=== PATIENT | male | born 1965 | race Two or more races ===

== ENCOUNTER 2020-01-24 08:07 | Inpatient (IN) | payer MEDICAID ==
[~2020-01-24] VITALS: Ht 157.5 cm; Wt 78.9 kg
[~2020-01-24 08:07] MED LIST: ASPI-404 PO; CETI1TAB36 PO; CLOP75TA28 PO; HYDR25TA4 PO; LISI-646 PO; OMEP-335 PO; RANO500T2 PO
[2020-01-24] MEDS ORDERED: ANGIOMAX 250 MG VIAL IV ONE (08:38)
[2020-01-24] MEDS ORDERED: VERAPAMIL 2.5MG/ML INJ 2ML VIAL IV ONE (08:38)
[2020-01-24] MEDS ORDERED: SODIUM CHL 0.9% 0 ML ONE (08:39)
[2020-01-24] MEDS ORDERED: LIDOCAINE 2%HCL (LOCAL ANESTH.) INJ 20ML MDV ONE (08:39)
[2020-01-24] MEDS ORDERED: IODIXANOL 320MG/ML 100ML BTL IV ONE (08:48)
[2020-01-24] MEDS ORDERED: fentaNYL CITRATE 100 MCG/2 ML VL ONE (08:59)
[2020-01-24] MEDS ORDERED: MIDAZOLAM HCL 1MG/1ML-2 ML VIAL ONE (08:59)
[2020-01-24] MEDS ORDERED: HEPARIN SODIUM (PORCINE) 5000 UNITS/ML 1ML VIAL ONE (09:27)
[2020-01-24] MEDS ORDERED: ACETAMINOPHEN 500 MG TAB PO PRN (09:45)
[2020-01-24] MEDS ORDERED: NITROGLYCERIN 0.4 MG SL TAB SL PRN ×2 (09:45)
[2020-01-24] MEDS ORDERED: MORPHINE SULF INJ 2 MG/ML SYRINGE 1ML IV PRN ×2 (09:45)
[2020-01-24] MEDS ORDERED: HYDROcodone-ACET 5/325MG TAB PO PRN (09:45)
[2020-01-24] MEDS ORDERED: ONDANSETRON HCL 4 MG/2 ML VIAL IV PRN (09:45)
[2020-01-24] MEDS ORDERED: HCTZ 25 MG TAB PO SCH (10:00)
[2020-01-24] MEDS ORDERED: [UNRECOGNIZED DRUG - REMARK] PO SCH (10:00)
[2020-01-24] MEDS: ASPirin-EC 81 mg tab PO SCH (10:00)
[2020-01-24] MEDS ORDERED: PATIENTS OWN MEDICATION (Omeprazole 20 MG) PO SCH (10:00)
[2020-01-24] MEDS: LISINOPRIL 20 MG TAB PO SCH (10:00)
[2020-01-24] MEDS ORDERED: SODIUM CHLORIDE 0.9% 1,000 ML IV ONE (10:00)
[2020-01-24] MEDS: RANOLAZINE ER 500 MG TAB PO SCH ×2 (10:00→21:20)
[2020-01-24] MEDS: CLOPIDOGREL BISULFATE 75 MG TAB PO SCH (10:00)
[2020-01-24 10:32] LABS: BUN/Creatinine Ratio 24.5; Calcium 9.2 mg/dL (8.5-10.1)
[2020-01-24 10:39] LABS: Potassium 2.9 mmol/L (3.5-5.1)
[2020-01-24] MEDS ORDERED: GLIP5TAB12 PO (10:52)
[2020-01-24] MEDS ORDERED: POTASSIUM CHL 20 Meq TABLET PO ONE (11:00)
[2020-01-24] MEDS ORDERED: DEXTROSE (50%) 50ML SYRG IV PRN (11:00)
[2020-01-24] MEDS ORDERED: MAGNESIUM SULFATE 1GM/100ML 100 ML IV ONE (11:30)
--- NOTE | 2020-01-24 11:40 | NUR ---
Report received from lab analyst. ANGELA TEMPLE brought to bed 223B following Cardiac catheterization, on monitoring tech and portable oxygen. Patient transferred to unit bed, connected to quality assurance monitor chassis and oxygen. Catheterization site left wrist assessed for any bleeding, redness or swelling. TR band in place. 6ml of air need to be removed start @ 1145 per cytogenetics laboratory manager Rn. Patient instructed on need to notify staff immediately if any pain, burning or wetness to site, and any lower back pain. All questions and concerns addressed, patient verbalized understanding of all education and instruction. Bed locked in the lowest position, call light within easy reach. Will continue to monitor.
--- NOTE | 2020-01-24 11:45 | NUR ---
REMOVED 2ML OF AIR FROM TR BAND. NO BLEEDING NOTED, PULSE + TO AFFECTED EXTREMITY, LEFT HAND WARM AND DRY TO TOUCH, PT ABLE TO MOVE HAND AND ALL FINGER. WILL CONTINUE TO MONITOR.
--- NOTE | 2020-01-24 12:00 | NUR ---
REMOVED 2L OF AIR FROM TR BAND ON LEFT WRIST. NO BLEEDING OR BRUISING NOTED, LEFT HAND WARM AND DRY TO TOUCH, PT ABLE TO MOVE ALL FINGERS. WILL CONTINUE CARE.
--- NOTE | 2020-01-24 12:15 | NUR ---
REMOVED 2ML OF AIR FROM TR BAND. NO BLEEDING NOTED, PULSE + ON AFFECTED EXTREMITY, LEFT HAND WARM AND DRY TO TOUCH, PT ABLE TO MOVE HAND AND ALL FINGERS. WILL CONTINUE TO MONITOR.
[2020-01-24] MEDS: ACCU-CHEK COMFORT CURVE STRIP VI SCH ×3 (12:33→21:44)
[2020-01-24] MEDS: InsuLIN REG 1unit/0.01ml Soln (100units/ml) SC SCH ×2 (12:48→17:50)
[2020-01-24 13:00] VITALS: BP 130/65
[2020-01-24 16:19] VITALS: BP 100/64
[2020-01-24 18:01] LABS: BUN/Creatinine Ratio 19.6; Calcium 9.4 mg/dL (8.5-10.1); Potassium 3.9 mmol/L (3.5-5.1)
--- NOTE | 2020-01-24 20:00 | NUR ---
Opening Shift Note Assumed care of patient, awake and alert. No S/S of distress/SOB or pain. Instructed on POC and to call for assist PRN, will continue to monitor for changes Q1hr and PRN.Left wrist dressing dry and intact.
[2020-01-24] MEDS ORDERED: SODIUM CHLORIDE 0.9% 500 ML IV ONE ×2 (20:45→21:00)
[2020-01-24] MEDS ORDERED: SODIUM CHL 0.9% 250 ML IV ONE (21:15)
[2020-01-24] MEDS: glipiZIDE 5 MG TAB PO SCH (21:44)
[2020-01-24 22:00] VITALS: BP 101/58
[2020-01-24] MEDS ORDERED: InsuLIN REG 1unit/0.01ml Soln (100units/ml) SC SCH (22:00)
[2020-01-25 05:00] VITALS: BP 110/67
[2020-01-25] MEDS: ACCU-CHEK COMFORT CURVE STRIP VI SCH ×2 (06:29→11:27)
[2020-01-25] MEDS: InsuLIN REG 1unit/0.01ml Soln (100units/ml) SC SCH ×2 (06:29→11:28)
--- NOTE | 2020-01-25 07:31 | NUR ---
Dr Ayala Called stated that he would be in to see pt. Will assess possible d/c when MD rounds. further stated he does not need to have a hospitalist see pt. Will continue to monitor.
--- NOTE | 2020-01-25 07:34 | NUR ---
Report given to Judie Llanes ,patient is resting no pain the whole night, and to tell to Dr. Painting to call the today.
--- NOTE | 2020-01-25 07:53 | NUR ---
Opening Note Assumed pt care from NOC RN. Pt is a/ox4 with no s/s of distress or SOB. Pt is currently out of bed with no complaints at this time. Discussed POC with pt and pending clearance from Dr Ayala, pt verbalized understanding. Safety measures maintained with call light within reach, bed in lowest position and side rails up. Will continue to monitor.
[2020-01-25] MEDS: CLOPIDOGREL BISULFATE 75 MG TAB PO SCH (08:43)
[2020-01-25] MEDS: LISINOPRIL 20 MG TAB PO SCH (08:44)
[2020-01-25] MEDS: glipiZIDE 5 MG TAB PO SCH (08:44)
[2020-01-25] MEDS: RANOLAZINE ER 500 MG TAB PO SCH (08:44)
[2020-01-25] MEDS: ASPirin-EC 81 mg tab PO SCH (08:45)
[2020-01-25 09:00] VITALS: BP 109/70
[2020-01-25] MEDS ORDERED: LORATADINE 10 MG TAB PO SCH (10:00)
[2020-01-25] MEDS ORDERED: PANTOPRAZOLE 40 MG TAB PO SCH (10:00)
--- NOTE | 2020-01-25 11:30 | NUR ---
Dr Barajas at Bedside MD to see pt. Plans to d/c pt home today. MD requests that pt avoid hydrochlorothiazide. Will continue to monitor and implement.
[2020-01-25 12:46] VITALS: BP 109/70
--- NOTE | 2020-01-25 13:07 | NUR ---
IV and Tele 28 D/C'ed Pt IV to L FA removed. Catheter was removed fully intact. Site is asymptomatic. Pressure was applied to site for 3 minutes with gauze and then wrapped in coban. Pt instructed to keep dressing on for 30 minutes; pt verbalized understanding. Tele 28 removed and sent back to ICU. Tele staff made aware.
--- NOTE | 2020-01-25 13:17 | NUR ---
Pt D/C'ed Off Unit Pt ambulated off unit. Pt is a/ox4 with no s/s of distress or SOB. Pt took all belongings, education material, follow up appointment information, and all questions were answered. IV and tele box were d/c'ed prior to d/c. All questions were answered.
== END 2020-01-25 13:16 | disposition home or self-care (01) | DRG 191 ==
LOC: CATH 08:07 → TELE-CENTR 11:53
PROVIDERS: ADMIT Internal Medicine; ATTEND Internal Medicine
PROC: B211YZZ Fluoroscopy of Multiple Coronary Arteries using Other Contrast (ICD-10-PCS; principal; 2020-01-24)
DX: I25.10 Atherosclerotic heart disease of native coronary artery without angina pectoris (principal); R94.39 Abnormal result of other cardiovascular function study; I49.01 Ventricular fibrillation; Z79.899 Other long term (current) drug therapy
CPT/HCPCS: 36415; 80048; 82962; 83735; 99152; 99153; G0378; J1815; J2250; Q9967